=== PATIENT | female | born 1940 | race Caucasian/White ===

== ENCOUNTER 2016-08-23 05:06 | Inpatient (IN) | payer MEDICARE ==
[2016-08-09 13:13] LABS: ASCORBIC ACID (UR NOT ORDER) NEG (NEG); BILIRUBIN, URINE NEGATIVE (NEG); KETONE, URINE NEGATIVE (NEG); LEUKOCYTE ESTERASE(NOT OR NEG (NEG); WBC (NOT ORDERED) (RFLEX) < 1 (0-5)
[2016-08-09 13:14] LABS: BASOPHILS 0.4 %; BASOPHILS ABSOLUTE 0.03 10/3/uL (0.0-0.16); EOSINOPHILS 2.2 %; EOSINOPHILS ABSOLUTE 0.18 10/3/uL (0.0-0.53); HEMATOCRIT 36.2 % (36.0-48.0); HEMOGLOBIN 11.2 g/dL (12.0-16.0); IMMATURE GRANULOCYTES 0.7 %; IMMATURE GRANULOCYTES ABSOLUTE 0.06 10/3/uL (0.0-0.11); LYMPHOCYTES 21.3 %; LYMPHOCYTES ABSOLUTE 1.76 10/3/uL (0.67-4.30); MEAN CORPUSCULAR VOLUME 84.2 fL (80-100); MEAN PLATELET VOLUME 11.2 fL (9.2-13.0); MONOCYTES 10.3 %; MONOCYTES ABSOLUTE 0.85 10/3/uL (0.21-1.20); NEUTROPHILS 65.1 %; NEUTROPHILS ABSOLUTE 5.37 10/3/uL (2.02-8.40); PLATELET COUNT 281 10/3/uL (150-400); RBC DISTRIBUTION WIDTH 16.1 % (12.0-16.0); WHITE BLOOD CELLS 8.3 10/3/uL (4.5-10.5)
[2016-08-09 13:18] LABS: MANUAL DIFF NO %; MEAN CORPUS HGB CONC 30.9 g/dL (32.0-36.0)
[2016-08-09 13:21] LABS: INTERNATIONAL NORMAL RATI 1.1 UNITS (-); PARTIAL THROMBO TIME 25.9 SEC (22.5-37.2)
[2016-08-09 13:31] LABS: A/G RATIO 1.1 (0.7-1.9); ALBUMIN 3.8 G/DL (3.5-5.0); BUN (BLOOD UREA NITROGEN) 18 MG/DL (6-23); CALCIUM, SERUM 9.2 MG/DL (8.5-10.4); CHLORIDE, SERUM 99 MMOL/L (96-112); CO2 (CARBON DIOXIDE) 28 MMOL/L (24-34); CREATININE 1.06 MG/DL (0.55-1.02); GFR AFRICAN AMERICAN 59 ML/MIN (>=60); GFR NON AFRICAN AMERICAN 51 ML/MIN (>=60); GLOBULIN 3.5 G/DL (2.5-4.1); GLUCOSE, SERUM 155 MG/DL (60-99); POTASSIUM, SERUM 4.5 MMOL/L (3.5-5.3); SGOT(AST) 23 U/L (5-40); SGPT(ALT) 21 U/L (5-65); SODIUM, SERUM 133 MMOL/L (135-148); TOTAL BILIRUBIN 0.3 MG/DL (0-1.2); TOTAL PROTEIN 7.3 G/DL (6.0-8.5)
[2016-08-09 13:32] LABS: ALKALINE PHOSPHATASE 79 U/L (45-117)
--- NOTE | ~2016-08-23 | OP ---
Record Of Operation [facility] [address] [place]. [address] NAME: LYNNE BARRIOS : 40 STATUS : ADM IN PAT#: [id number] AGE: 76 ADM/REG DATE : 08/23/16 MR#: [id number] REPORT SERV DATE: 08/23/16 DICTATED BY: RAHAT ANNE DATE: 08/23/16 REPORT STATUS : Draft TRANSCRIBED BY: MODL DATE: 08/23/16 DATE OF PROCEDURE: 08/23/2016 PREOPERATIVE DIAGNOSIS: Right knee arthritis. POSTOPERATIVE DIAGNOSIS: Right knee arthritis. PROCEDURE PERFORMED: Right total knee arthroplasty. SURGEON: Rahat Anne M.D. METAL RIVETER: Mike Tolentino. ANESTHESIA: Per anesthetic record with adductor block and local infusion. PROCEDURE IN DETAIL: The patient is clearly identified and after obtaining informed consent is brought to the operating room at [facility] where anesthesia is induced uneventfully with excellent anesthetic effect. Subsequently, the affected extremity is prepped and draped in the usual manner and after an appropriate time-out procedure is performed, via an anterior approach, the skin is divided, fascial planes are elevated, paramedial approach to the knee is made. The structures themselves are elevated, excised, and debrided were appropriate, whereupon the patella is carefully everted, calipered, and planed and with the size and type being reproduced with the appropriate-size patella, trialing is performed successfully. At this point, the patella is then carefully subluxed laterally, the knee is flexed, osteophytes around the distal femur are removed, followed by the ACL being divided. The femoral canal is entered and vented, at which point with the intramedullary guide being utilized, the distal femoral cut is made. At this point, the tibia is carefully subluxed anteriorly. The surrounding soft tissues to the tibia are protected with Hohmann retractors, at which point the extramedullary guide is utilized to perform the proximal tibial cut and after cleansing these tissues, the spacer block is utilized in extension to confirm excellent extension, stability, and alignment. The guiding pins are then all carefully removed and the knee is then flexed. The femur is sized, whereupon the anterior, posterior, chamfer, and box cuts are made appropriately. The proximal tibia then is assessed. Osteophytes and surrounding soft tissues are removed and debrided were appropriate. Posterior osteophytes are removed as well. The menisci are excised and thus concluding trialings performed successfully. The proximal tibia then is carefully prepared utilizing proper cement technique. The permanent implants have been carefully placed into position uneventfully where upon copious irrigations performed, the permanent tibial implants applied and thus concluded. The joint was then copiously irrigated, at which point it is closed carefully in layers including Vicryl and giuseppe for the skin, at which point Aquacel sterile dressing is applied. The patient is allowed to awaken and is transferred to the bed and subsequently to the recovery room in stable condition having tolerated the procedure well. ESTIMATED BLOOD LOSS: 50 mL. Record Of Operation [facility] [id number] [place]. [address] NAME: LYNNE BARRIOS : 40 STATUS : ADM IN [facility]#: [id number] AGE: 76 ADM/REG DATE : 08/23/16 MR#: [id number] REPORT SERV DATE: 08/23/16 DICTATED BY: RAHAT ANNE DATE: 08/23/16 REPORT STATUS : Draft TRANSCRIBED BY: HEATHER DATE: 08/23/16 FLUIDS: 1100 mL. TOURNIQUET TIME: 44 minutes. PATHOLOGY: Sent specimen. MICROBIOLOGY: None. COMPLICATIONS: None. SPONGE AND NEEDLE COUNTS: Reportedly correct. ANTIBIOTICS: Administered appropriately preoperatively and ordered to be discontinued within 23 hours. IMPLANTS: Attune knee by DePuy, femur 5 standard, tibia 4, patella 38, polyethylene 5/10. LUKASZ/HEATHER Rahat Anne M.D. / [id number] CC: Rahat Anne M.D.
[~2016-08-23 05:06] MED LIST: ACIDOPHILU1 PO; ALAWAY0.025 % OP; ALAWAY0.025 % OPH; ASAB PO; ATEN25 PO; AVAPRO300 MG PO; BEN25 PO; BENADRYL 50 MG50 MG PO; BIST PO; CALTRA600D PO; CEFT5 PO; CELEBREX2 PO; CENTRUM TAB1 TAB PO; CINNAMON; CINNAMONPO PO; CITRACAL PO; CO Q-10100 MG PO; COQ10100 MG OR; CRANBERRY1 TAB OR; CRANBERRY300 MG OR; DIOV160 PO; DIOV80 PO; DIOVAN320 MG PO; ELIQUIS 5 MG TAB5 MG PO; ESTRACE VAG0.1 MG/GM V; FLONASE NAS; GLUCCHONDR PO; GLUCOPHAGE1000 MG PO; GLUCOPHXR PO; GLUCPH PO; KLOR-CON 1010 MEQ PO; LAN125 PO; LEVOTHROID125 MCG PO; LIPITOR20 PO; LUTEIN1 CAP OR; MACRO50B PO; MACROBID PO; MAGOX4 PO; MEGA RED OR; MEGA RED PO; MEGARED PO; METAMUCIL CAN7 OZ PO; METAMUCIL PO; MICRO-K10 MEQ PO; MIRALAX POWDER1 PKT PO; MIRALAXPKT PO; MONUROL POWDER 33 GM PO; MUCINEX1200 MG PO; MUCINEX600 MG PO; MYLANTA GAS125 M1 PO; OCUVITE PO; P5 PO; PREV30 PO; PROMEGA PO; PROTONIX PO; PVC V; PYR100B PO; RYTHMOL225 MG PO; SIMETHICONE 80 MG PO; SINGULAIR1 PO; SPIRO50 PO; STOOL SOFTEN240 MG PO; SYN125 PO; TAMIFLU PO; TEKTUR150 PO; THYROID PO; TRICOR145 PO; TYLENOL ARTH650 MG PO; ULTRAM50 PO; VERAPAMIL 180 MG PO; VERAPAMIL PO; VERELAN180 MG PO; VISION FORMULA; XYZAL5 MG PO; ZINC GLUCON50 MG PO; ZYRTEC; ZYRTEC ALLGY10 MG PO; [UNRECOGNIZED DRUG - OTHER]
[2016-08-23 06:40] LABS: ALBUMIN 3.8 G/DL (3.5-5.0); ALKALINE PHOSPHATASE 76 U/L (45-117); SGOT(AST) 25 U/L (5-40); SGPT(ALT) 23 U/L (5-65); TOTAL BILIRUBIN 0.3 MG/DL (0-1.2); TOTAL PROTEIN 7.4 G/DL (6.0-8.5)
[2016-08-23 06:41] LABS: DIRECT BILIRUBIN < 0.1 MG/DL (0.0-0.4); INDIRECT BILIRUBIN(NOT ORDER) 0.2 MG/DL (0.1-0.9)
[2016-08-24 04:33] LABS: HEMATOCRIT 28.2 % (36.0-48.0)
[2016-08-24 04:38] LABS: BUN (BLOOD UREA NITROGEN) 16 MG/DL (6-23); CALCIUM, SERUM 8.4 MG/DL (8.5-10.4); CHLORIDE, SERUM 97 MMOL/L (96-112); CO2 (CARBON DIOXIDE) 26 MMOL/L (24-34); CREATININE 1.13 MG/DL (0.55-1.02); GFR AFRICAN AMERICAN 55 ML/MIN (>=60); GFR NON AFRICAN AMERICAN 47 ML/MIN (>=60); GLUCOSE, SERUM 132 MG/DL (60-99); POTASSIUM, SERUM 4.3 MMOL/L (3.5-5.3); SODIUM, SERUM 130 MMOL/L (135-148)
[2016-08-24 04:44] LABS: INTERNATIONAL NORMAL RATI 1.2 UNITS (-)
[2016-08-25 06:27] LABS: HEMATOCRIT 27.4 % (36.0-48.0); HEMOGLOBIN 8.7 g/dL (12.0-16.0)
[2016-08-25 06:33] LABS: INTERNATIONAL NORMAL RATI 1.4 UNITS (-); PROTIME (NOT ORD) 16.7 SEC (12.0-14.5)
[2016-08-25] MEDS ORDERED: C5 (09:37)
[2016-08-25] MEDS ORDERED: DIL2TAB PO (09:37)
[2016-08-25] MEDS ORDERED: PR12.5 PO (09:37)
== END 2016-08-25 12:21 | disposition home or self-care (01) | DRG 470 ==
LOC: SDC/OF 05:06 → 3JRC 13:13
PROVIDERS: Orthopaedic Surgery
PROC: 3E0T3CZ (ICD-10-PCS; 2016-08-23)
PROC: 0SRC0J9 Replacement of Right Knee Joint with Synthetic Substitute, Cemented, Open Approach (ICD-10-PCS; principal; 2016-08-23 06:30)
DX: M17.11 Unilateral primary osteoarthritis, right knee (principal); E11.9 Type 2 diabetes mellitus without complications; D62 Acute posthemorrhagic anemia; I10 Essential (primary) hypertension; K21.9 Gastro-esophageal reflux disease without esophagitis; K58.9 Irritable bowel syndrome, unspecified; E78.5 Hyperlipidemia, unspecified; E03.9 Hypothyroidism, unspecified; Z90.49 Acquired absence of other specified parts of digestive tract; Z98.890 Other specified postprocedural states; Z79.899 Other long term (current) drug therapy
CPT/HCPCS: 36415; 71020; 80048; 80053; 80076; 81001; 82962; 85014; 85018; 85025; 85610; 85730; 86850; 86900; 86901; 87641; 88305; 88311; 93005; 97116-GP; 97150-GP; 97161-GP; 97165-GO; A9270-GY; C1776; G8978-CK-GP; G8979-CI-GP; J0690; J1170; J1720; J1885; J2250; J2270; J2370; J2405; J2710; J2795; J3010